=== PATIENT | female | born 1990 | race Caucasian/White ===

== ENCOUNTER 2022-07-18 04:41 | Inpatient (IN) ==
[2022-07-18] MEDS ORDERED: LIDOCAINE 1% LOCAL 20 ML VIAL INFIL PRN (05:52)
[2022-07-18] MEDS ORDERED: OXYTOCIN 30 UNITS/500 ML BAG IV PRN ×4 (05:52→18:02)
--- NOTE | 2022-07-18 05:59 | History & Physical Report ---
Date of Service July 18, 2022 Assessment & Plan (1) Encounter for supervision of normal intrauterine in primigravida, antepartum: Plan: IUP at 40+ weeks with SPROM at 0230 in early labor start pitocin augmentation if needed epidural analgesia when requested anticipate vaginal History of Present Illness Primary Care Provider: Laury Flores MD Patient is a 31 yo female EDC 07/16/22 who presents at 40 2/7 weeks with SPROM at 0230 for large amount of clear fluid and has started to have mild contractions since then. uncomplicated. GBS negative. Allergies Allergy/AdvReac Type Severity Reaction Status Date / Time Penicillins Allergy hives Verified 07/17/22 12:51 Home Medications Medication Instructions Recorded Confirmed Type clonazepam 0.5 mg tablet 0.5 mg PO PRN 11/26/21 07/17/22 History prenat.vits,odessa,[id number] 1 tab PO DAILY 11/26/21 07/17/22 History cetirizine 10 mg capsule (Zyrtec) 10 mg PO DAILY PRN 01/30/22 07/17/22 History Patient History Medical History (Updated 11/26/21 @ 14:25 by Carissa PIKE, HARPAL) Abnormal uterine bleeding (AUB) Generalized anxiety disorder History of chicken pox Surgical History (Updated 11/26/21 @ 14:25 by Carissa PIKE, HARPAL) No significant past surgical history Family History (Updated 11/26/21 @ 14:26 by Carissa PIKE, HARPAL) Mother Hypertension Uterine fibroid Hypothyroid Anxiety Grandmother (Maternal) Anxiety Hypertension Grandfather (Maternal) Anxiety Hypertension Denies family history of Ovarian cancer Breast cancer Colorectal cancer Social History (Updated 11/26/21 @ 14:16 by Carissa PIKE, HARPAL) Smoking Status: Never smoker Hx Alcohol Use: No Hx Substance Use: No Preferred Language: Bengali Communication Ability: Effective marital status: Single marital status details: Ronan Hernández (24) [phone] Current Living Situation: Significant Other Current Living Situation Comment: FOB and 1 dog and 1 cat (FOB to change litter) current occupational status: employed 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 [place] Review of Systems All systems reviewed & are unremarkable except as noted in HPI & below Physical Exam Constitutional: WD/WN, vitals as above Psychiatric: A+Ox3, euthymic affect Genitourinary: OB Exam Abdomen: + vertex and + estimated weight (7-8 pounds) Manual OB Exam: + cervical dilation 3 cm, + cervical effacement 70% and + station -2 OB Exam Monitor Tracing: + external FHT monitor used, + external uterine monitor used, + category I and + normal FHT variability Results & Data ([facility]) Vital Signs (Past 12 Hours) Vital Signs Pulse BP 07/18/22 05:05 92 H 130/87 Code Status & VTE Plan VTE Prophylaxis Plan VTE Prophylaxis will be ordered: No Coding Level of Care Code None Diagnoses Encounter for supervision of normal intrauterine in primigravida, antepartum Z34.00
[2022-07-18 06:14] LABS: Hematocrit (blood only) 31.7 % (34.1-44.9); Hemoglobin 10.2 g/dl (12.0-16.0); Mean Corpuscular Hemoglobin 24.9 pg (25.0-34.0); Mean Corpuscular Hgb Conc 32.2 g/dL (32.0-36.0); Mean Corpuscular Volume 77.5 fL (80.0-100.0); Mean Platelet Volume 11.2 fL (9.4-12.3); Platelet Count 238 K/uL (130-400); RDW Coefficient of Variation 14.8 % (11.5-14.5); RDW Standard Deviation 41.1 fL (36.4-46.3); Red Blood Count 4.09 M/uL (3.93-5.22); White Blood Count 11.53 K/ul (4.8-10.8)
[2022-07-18] MEDS ORDERED: diphenhydrAMINE 50 MG/ML VIAL IV PRN (08:14)
[2022-07-18] MEDS ORDERED: NALOXONE HCL 0.4 MG/1 ML VIAL/CARP IV PRN (08:14)
[2022-07-18] MEDS ORDERED: ONDANSETRON INJ 2 MG/ML 2 ML VIAL IV PRN (08:14)
[2022-07-18] MEDS ORDERED: ePHEDrine sulfate 50 MG/ML AMP IV PRN (08:14)
[2022-07-18] MEDS ORDERED: NALOXONE HCL 1 MG in SODIUM CHLORIDE 0.9% 1000ML 1,000 ML IV PRN (08:14)
[2022-07-18] MEDS ORDERED: NALBUPHINE HCL INJ 10 MG/ML AMP IV PRN (08:14)
[2022-07-18] MEDS ORDERED: PROMETHAZINE HCL 6.25 MG in SODIUM CHLORIDE 0.9% 50 ML IV PRN (08:14)
--- NOTE | 2022-07-18 08:16 | Anesthesiology Consultation ---
Date of Service July 18, 2022 Assessment & Plan Chart Review Chart Review: Patient NOT seen in Pre Admission Testing and Acceptable Risk for Labor Epidural Consults Requested none ASA ASA2 Proposed Anesthesia Anesthesia Type: Labor Epidural Risk / Benefits Reviewed With: PT / POA / Parent / Guardian, Accepts Plan and Informed Consent Obtained History Height/Weight Weight: 81.193 kg Allergies Allergy/AdvReac Type Severity Reaction Status Date / Time Penicillins Allergy hives Verified 07/17/22 12:51 Medications Home Medications Medication Instructions Recorded Confirmed Last Taken clonazepam 0.5 mg tablet 0.5 mg PO PRN 11/26/21 07/17/22 Unknown prenat.vits,odessa,[id number] 1 tab PO DAILY 11/26/21 07/17/22 Unknown cetirizine 10 mg capsule (Zyrtec) 10 mg PO DAILY PRN 01/30/22 07/17/22 Unknown Past Medical History Medical History (Updated 11/26/21 @ 14:25 by Carissa PIKE, HARPAL) Abnormal uterine bleeding (AUB) Generalized anxiety disorder History of chicken pox Exercise / Class Metabolic Activity II 4-5 Yardwork/Stairs/Walk up hill Past Family History Family History (Updated 11/26/21 @ 14:26 by Carissa PIKE, HARPAL) Mother Hypertension Uterine fibroid Hypothyroid Anxiety Grandmother (Maternal) Anxiety Hypertension Grandfather (Maternal) Anxiety Hypertension Denies family history of Ovarian cancer Breast cancer Colorectal cancer Past Surgical History Surgical History (Updated 11/26/21 @ 14:25 by Carissa PIKE, HARPAL) No significant past surgical history Past Anesthesia History No Hx of Anesthesia Complications and No Family Hx of Anesthesia Complications History of PONV No Hx of PONV and No Hx of Motion Sickness Social History Smoking Status: Never smoker Do You Dip or Chew Tobacco: No Hx Alcohol Use: No Hx Substance Use: No substance use type: does not use Physical Exam Vital Signs Last Vital Signs Temp 36.4 C L 07/18/22 06:23 Pulse 88 07/18/22 08:08 Resp 18 07/18/22 06:23 BP 127/84 07/18/22 08:08 ENMT Mouth: no dentition abnormality Thyromental Distance: > or= 3.5 Finger Breadths Mallampati Class: II Neck normal visual inspection Respiratory normal respiratory effort Auscultation: lungs clear to auscultation bilaterally Cardiovascular Rate/Rhythm: regular rate and regular rhythm Psychiatric Orientation: alert Testing Laboratory Results 07/18/22 06:02
[2022-07-18] MEDS ORDERED: SODIUM CHLORIDE 0.9% INJ 10 ML VIAL ONE (08:42)
[2022-07-18] MEDS ORDERED: LIDOCAINE 2%/EPINEPHRINE 1:200,000 20 ML SDV ONE (08:42)
[2022-07-18] MEDS ORDERED: BUPIVACAINE 0.25% 30 ML VIAL ONE (08:42)
[2022-07-18] MEDS ORDERED: ePHEDrine sulfate 50 MG/ML AMP ONE (08:42)
[2022-07-18] MEDS ORDERED: fentaNYL citrate 100 MCG/2 ML VIAL ONE (08:42)
[2022-07-18] MEDS ORDERED: fentaNYL 2MCG/ML ROPIVACAINE 1.25MG/ML 100 ML BAG EPI ONE (08:43)
[2022-07-18] MEDS: LACTATED RINGER'S 1,000 ML IV PRN ×2 (08:45→12:56)
[2022-07-18] MEDS: fentaNYL 2MCG/ML ROPIVACAINE 1.25MG/ML 100 ML BAG EPI PRN ×2 (09:05→16:23)
--- NOTE | 2022-07-18 10:12 | Labor Progress Brief Note ---
Date of Service July 18, 2022 Patient is an epidural checked her cervix she is unchanged from the previous check contractions are spaced apart I recommended Pitocin she agrees estimated weight 70 pounds Assessment & Plan Admission and Anticipated Discharge Date Admission Date: July 18, 2022 Results & Data ([facility]) Vital Signs (Past 12 Hours) Vital Signs Temp Pulse Resp BP Pulse Ox 07/18/22 06:23 97.5 F L 18 07/18/22 10:09 86 100 07/18/22 10:04 85 114/70 100 07/18/22 09:59 85 99 07/18/22 09:54 76 99 07/18/22 09:49 79 100 07/18/22 09:48 74 113/65 07/18/22 09:44 79 100 07/18/22 09:39 78 100 07/18/22 09:34 81 100 07/18/22 09:33 72 115/68 07/18/22 09:29 71 100 07/18/22 09:24 75 100 07/18/22 09:19 90 100 07/18/22 09:17 77 118/66 07/18/22 09:14 83 100 07/18/22 09:15 75 119/65 07/18/22 09:13 79 122/65 07/18/22 09:11 82 121/68 07/18/22 09:09 84 120/67 100 07/18/22 09:07 85 120/71 07/18/22 09:05 80 122/69 07/18/22 09:06 94 H 125/71 07/18/22 09:04 85 100 07/18/22 09:00 94 H 127/76 07/18/22 08:59 95 H 100 07/18/22 08:54 107 H 93 07/18/22 08:49 87 98 07/18/22 08:47 81 135/84 07/18/22 08:12 18 07/18/22 08:12 98.2 F 18 07/18/22 08:08 88 127/84 07/18/22 05:05 92 H 130/87 Coding Level of Care Code None
--- NOTE | 2022-07-18 17:40 | Delivery Summary ---
Vaginal Delivery Summary Date of Service July 18, 2022 Spontaneous vaginal delivery the patient is admitted by Dr. Schaeffer previously ruptured membranes eventually requested epidural and then Pitocin was started for augmentation patient reached fully dilated delivered a baby in occiput anterior position mouth and then nares were suctioned fluid was clear there was no nuchal cord gentle gentle traction on the baby no excessive force live vigorous female cord clamped and cut cord gases obtained cord blood obtained placenta removed with gentle traction second-degree tear repaired with 3-0 Vicryl in the usual fashion sponge and instrument counts correct estimated blood loss 200 Liters uterine bleeding minimal after Pitocin
[2022-07-18 17:59] LABS: Base Excess Cord Venous Blood -4.5 mEq/L (-7.7-1.9); Cord Venous Blood HCO3 21 mmol/L (18.4-26.8); Cord Venous Blood PCO2 40 mmHg (30.4-57.2); Cord Venous Blood PO2 25 mmHg (14.1-43.3); Cord Venous Blood pH 7.33 (7.20-7.44); O2 Saturation Cord Venous Bld < 60.0 % (<68)
[2022-07-18 18:00] LABS: Base Excess Cord Arterial Bld -3.9 mEq/L (-9-1.8); CO2 Cord Arterial Blood 40 mmHg (39.1-73.5); HCO3 Cord Arterial Blood 22 mmol/L (19.7-28.5); Oxygen Sat Cord Arterial Blood < 60.0 % (<60); PO2 Cord Arterial Blood 28 mmHg (4.1-31.7); pH Cord Arterial Blood 7.34 (7.1-7.38)
[2022-07-18] MEDS ORDERED: ACETAMINOPHEN 325 MG TAB PO PRN (18:02)
[2022-07-18] MEDS ORDERED: DIPHTHERIA/TETANUS/PERTUSSIS 0.5 ML SYR/VIAL IM ONE (18:02)
[2022-07-18] MEDS ORDERED: HYDROCORTISONE ACETATE 25 MG SUPP PR PRN (18:02)
[2022-07-18] MEDS ORDERED: bisacodyL 10 MG SUPP PR PRN (18:02)
[2022-07-18] MEDS ORDERED: oxyCODONE/ACETAMINOPHEN 5mg/325mg TAB PO PRN (18:02)
[2022-07-18] MEDS ORDERED: BENZOCAINE 20% AER SPR 82.5 GM CAN EXT PRN (18:02)
--- NOTE | 2022-07-18 19:34 | Anesthesia Procedure Note ---
Date of Service July 18, 2022 Anesthesia Post Epidural Note Vital Signs Vital Signs: Temp Pulse Resp BP Pulse Ox 36.8 C 82 18 115/62 79 L 07/18/22 19:15 07/18/22 19:29 07/18/22 19:07/18/22 19:07/18/22 17:24 Pain Intensity Medial Abdomen: Pain Intensity: 2 Perineal: Pain Intensity: 6 Notes Mental Status: alert / awake / arousable Nausea / Vomiting: adequately controlled Pain: adequately controlled Airway Patency, RR, SpO2: stable & adequate BP & HR: stable & adequate Hydration State: stable & adequate Neuraxial Anesthesia: was administered and sensory block is resolving Anesthetic Complications: no major complications apparent and Pt Satisfied with anesthetic care Epidural: Removed without complications and With tip intact
[2022-07-18] MEDS: IBUPROFEN 600 MG TAB PO PRN (19:56)
[2022-07-18] MEDS: DOCUSATE SODIUM 100 MG CAP PO SCH (20:50)
[2022-07-19] MEDS: IBUPROFEN 600 MG TAB PO PRN ×3 (03:50→20:06)
--- NOTE | 2022-07-19 07:20 | Obstetrical Progress Note ---
Date of Service <Ernesto Ny DO - Last Filed: 07/19/22 07:20> July 19, 2022 Assessment & Plan <Ernesto Ny DO - Last Filed: 07/19/22 07:20> (1) Encounter for care and examination after delivery: - Feels well today. Eating well, voiding well, ambulating well. - Pain well controlled with ibuprofen 600mg Q4H PRN - Routine care -- OOB, ambulation, diet progression as tolerated - After discharge will have 6 week follow-up with Dr. Walter <Kim Walter MD, FACOG - Last Filed: 07/19/22 07:24> (1) Encounter for care and examination after delivery: Plan Resident Physician Supervision Note: I interviewed and examined the patient. Discussed with Dr. Dr. Ny and agree with findings and plan as documented in the note. Any exceptions or clarifications are listed here: [None] Documented By: Kim Walter MD, FACOG Subjective <Ernesto Ny DO - Last Filed: 07/19/22 07:20> Ambulation: ambulating normally Voiding: no voiding problems Passing Gas:: Yes Diet Tolerance:: regular diet Lochia:: Small Feeding Type:: breast feeding Current Pain Level(1-10): 3 Patient is a 31 y/o female who is now PPD # 1 following spontaneous vaginal delivery at 40.2 weeks. Reports feeling well overall this morning. Mild abdominal cramping & 3/10 pain well managed on analgesics. Voiding well. Tolerating meals overnight and able to ambulate some. Able to pass gas. Has some persistent lochia with some improvement this morning. Currently breast feeding. Review of Systems Denies fever, chills, sweats Denies shortness of breath, difficulty breathing, chest pain, palpitations, chest pressure. Denies breast pain. Denies dysuria. Denies headache or changes in vision. Physical Exam <Ernesto Ny DO - Last Filed: 07/19/22 07:20> General: Alert, oriented. No acute distress. Cardiac: Regular rate and rhythm, no murmurs/rubs/gallops. Respiratory: Clear to auscultation bilaterally a/p, no wheezes/rales/rhonchi. No increased work of breathing. Symmetrical chest rise. No respiratory distress. Abdomen: Soft, nontender, nondistended. Bowel sounds present. Uterus: Uterine fundus firm, palpable below umbilicus. Lower Extremities: No lower extremity edema or swelling. No deep calf pain. Lian's negative bilaterally. Results & Data ([facility]) <Ernesto Ny, DO - Last Filed: 07/19/22 07:20> Vital Signs (Past 12 Hours) Vital Signs Temp Pulse Pulse Resp BP BP Pulse Ox 07/19/22 03:46 37 C 61 16 115/77 98 07/18/22 20:30 36.9 C 78 16 143/83 H 98 07/18/22 22:42 37.1 C 76 18 123/75 96 07/18/22 19:45 18 07/18/22 19:55 75 127/72 07/18/22 19:44 90 116/66 07/18/22 19:29 82 115/62 O2 Del Method 07/19/22 03:46 Room Air 07/18/22 20:30 Room Air 07/18/22 22:42 Room Air 07/18/22 19:45 07/18/22 19:55 07/18/22 19:44 07/18/22 19:29 Resident Activity Tracking <Ernesto Ny, - Last Filed: 07/19/22 07:20> Resident Involvement: Resident Care Provided Care Provided: OB Delivery
[2022-07-19 08:05] LABS: Hematocrit (blood only) 28.4 % (34.1-44.9); Hemoglobin 9.1 g/dl (12.0-16.0); Mean Platelet Volume 10.7 fL (9.4-12.3); Platelet Count 192 K/uL (130-400); RDW Coefficient of Variation 15.1 % (11.5-14.5); RDW Standard Deviation 42.4 fL (36.4-46.3); Red Blood Count 3.64 M/uL (3.93-5.22); White Blood Count 13.77 K/ul (4.8-10.8)
[2022-07-19] MEDS: PRENATAL VITAMIN 1 TAB PO SCH (08:36)
[2022-07-19] MEDS: DOCUSATE SODIUM 100 MG CAP PO SCH ×2 (08:36→20:06)
[2022-07-19] MEDS ORDERED: bisacodyL 5 MG TABEC PO SCH (20:00)
--- NOTE | 2022-07-20 07:25 | Obstetrical Progress Note ---
Date of Service <Ernesto Ny DO - Last Filed: 07/20/22 07:25> July 20, 2022 Assessment & Plan <Ernesto Ny DO - Last Filed: 07/20/22 07:25> (1) Encounter for care and examination after delivery: - Feels well today. Eating well, voiding well, ambulating well. - Pain well controlled with ibuprofen 600mg Q4H PRN - Routine care -- OOB, ambulation, diet progression as tolerated - After discharge will have 6 week follow-up with Dr. Walter - D/C today <Wanda Chin MD - Last Filed: 07/20/22 07:43> (1) Encounter for care and examination after delivery: Subjective <Ernesto Ny - Last Filed: 07/20/22 07:25> Ambulation: ambulating normally Voiding: no voiding problems Passing Gas:: Yes Diet Tolerance:: regular diet Lochia:: Small Feeding Type:: breast feeding Current Pain Level(1-10): 3 Review of Systems Denies fever, chills, sweats Denies shortness of breath, difficulty breathing, chest pain, palpitations, chest pressure. Denies breast pain. Denies dysuria. Denies headache or changes in vision. Physical Exam <Ernesto Ny DO - Last Filed: 07/20/22 07:25> General: Alert, oriented. No acute distress. Cardiac: Regular rate and rhythm, no murmurs/rubs/gallops. Respiratory: Clear to auscultation bilaterally a/p, no wheezes/rales/rhonchi. No increased work of breathing. Symmetrical chest rise. No respiratory distress. Abdomen: Soft, nontender, nondistended. Bowel sounds present. Uterus: Uterine fundus firm, palpable below umbilicus. Lower Extremities: No lower extremity edema or swelling. No deep calf pain. Lian's negative bilaterally. Results & Data ([facility]) <Ernesto Ny DO - Last Filed: 07/20/22 07:25> Vital Signs (Past 12 Hours) Vital Signs Temp Pulse Resp BP Pulse Ox O2 Del Method 07/19/22 22:16 36.9 C 66 18 119/78 97 Room Air 07/19/22 20:26 36.4 C L 80 18 131/96 100 Room Air <Wanda Chin MD - Last Filed: 07/20/22 07:43> Co-Signing Physician Notes Resident Physician Supervision Note: I interviewed and examined the patient. Discussed with Dr. Ny and agree with findings and plan as documented in the note. Any exceptions or clarifications are listed here: PP2 s/p , doing well. Stable for d/c home today Documented By: Wanda Chin MD Resident Activity Tracking <Ernesto Ny DO - Last Filed: 07/20/22 07:25> Resident Involvement: Resident Care Provided Care Provided: OB Delivery
[2022-07-20] MEDS: PRENATAL VITAMIN 1 TAB PO SCH (07:27)
[2022-07-20] MEDS: DOCUSATE SODIUM 100 MG CAP PO SCH (07:27)
[2022-07-20 07:36] LABS: Hematocrit (blood only) 29.1 % (34.1-44.9); Hemoglobin 9.1 g/dl (12.0-16.0)
== END 2022-07-20 12:45 | disposition home or self-care (01) | DRG 807 ==
LOC: OPB 04:41 → 4S1 04:46 → 4E2 20:40